=== PATIENT | female | born 1990 | race Caucasian/White ===

== ENCOUNTER 2023-07-31 07:50 | Outpatient (CLI) | payer OTHER, MEDICAID, SELFPAY | END 2023-07-31 07:51 | disposition home or self-care (01) | LOC: INJ CL 07:56 | PROVIDERS: Visit Provider Family Medicine | DX: M54.16 Radiculopathy, lumbar region (principal); M51.36 Other intervertebral disc degeneration, lumbar region | CPT/HCPCS: 62323; J0702; Q9966 ==

== ENCOUNTER 2024-03-18 07:32 | Outpatient (CLI) | payer OTHER, SELFPAY | END 2024-03-18 07:33 | disposition home or self-care (01) | LOC: INJ CL 07:36 | PROVIDERS: Visit Provider Family Medicine | DX: M54.16 Radiculopathy, lumbar region (principal); M51.36 Other intervertebral disc degeneration, lumbar region | CPT/HCPCS: 62323; J0702; Q9966 ==